=== PATIENT | male | born 2000 | race African-American/Black ===

== ENCOUNTER 2021-12-26 15:12 | Emergency (ER) | payer SELFPAY ==
[2021-12-26 15:23] VITALS: BP 154/91; PULSE 71; RESP 12; TEMP 37; O2SAT 100; BMI 30.4
--- NOTE | 2021-12-26 15:31 | W.ED.UPPEXIN ---
HPI - Extremity Injury (Upper) General: Chief Complaint: Extremity Injury, Upper Stated Complaint: left hand injury Time Seen by Provider: 12/26/21 15:31 Source: patient Mode of arrival: ambulatory Limitations: no limitations History of Present Illness: Patient is a 21-year-old male who presents to ED today for evaluation of a left hand injury that he sustained 2 to 3 days ago while playing basketball. He states he was reaching for the ball when his left hand somehow slammed into the metal pole. complaint: injury to: left and hand Onset (ago): day(s) Other Extremity Injury: Left: hand Other injuries: none Place: outdoors Severity: moderate Relieving factors: immobilization Exacerbating factors: movement of extremity Context: direct blow Associated symptoms: Reports no associated symptoms; Denies weakness in extremities Review of Systems Musc: Reports: extremity pain (L hand); Denies: extremity swelling, joint pain, joint swelling, joint redness, joint warmth or limited range of motion Neuro: Denies: numbness in extremities, weakness in extremities or sensory changes Physical Exam Const: COMMON NORMALS: no acute distress, patient oriented x3, no limitations, alert and well nourished GENERAL APPEARANCE: cooperative Extremity: COMMON NORMALS: full ROM, capillary refill normal, no joint enlargement and no clubbing, cyanosis or edema GENERAL: Yes normal exam except as noted LEFT UPPER EXTREMITY: Yes hand & digits (TTP dorsal 4th metacarpal region; full ROM; no obvious deformity) Left hand and digits: Yes neurovascular exam (normal) Neuro: COMMON NORMALS: patient oriented x3 SENSORIUM/ORIENTATION: Yes alert Course Vital Signs: Vital signs: Vital Signs Temperature 98.6 F 12/26/21 15:23 Pulse Rate 71 12/26/21 15:23 Respiratory Rate 12 12/26/21 15:23 Blood Pressure 154/91 12/26/21 15:23 Pulse Oximetry 100 12/26/21 15:23 MDM - Extremity Injury (Upper) Medical Decision Making XR negative. Recommend conservative treatment at home. Follow-up with PCP in 1 to 2 weeks for continued pain. Discharge Plan Discharge Patient Disposition: Home Clinical Impression: Contusion of left hand Qualifiers: Encounter type: initial encounter Qualified Code(s): S60.222A - Contusion of left hand, initial encounter Condition: Stable Discharge Orders: Discharge ED (Routine); Ordered 12/26/21 Ordered By: Kandi Javed Patient Instructions: Contusion Stand Alone Forms: Work/School Release Coding Level of Care Code ED Cardiovascular Surgeon for Chg Fwd Exam Expanded Problem Focused
--- NOTE | 2021-12-26 15:41 | XRR_ITS ---
PROCEDURE INFORMATION: Exam: XR Left Hand Exam date and time: 12/26/2021 3:54 PM Age: 21 years old Clinical indication: Injury or trauma; Other: Playing basketball; Blunt trauma (contusions or hematomas); Hand; Left; Injury date: Few days ago; Additional info: Trauma/injury TECHNIQUE: Imaging protocol: XR Left hand. Views: 3 or more views. COMPARISON: No relevant prior studies available. FINDINGS: Bones/joints: Normal. Soft tissues: Normal. XR/XR hand LT min 3V* [id number] IMPRESSION: No acute findings.
== END 2021-12-26 16:25 | disposition home or self-care (01) ==
PROVIDERS: Emergency Provider Physician Assistant
DX: S60.222A Contusion of left hand, initial encounter (principal); W22.8XXA Striking against or struck by other objects, initial encounter; Y93.67 Activity, basketball
CPT/HCPCS: 73130; 99282

== ENCOUNTER 2022-01-04 16:56 | Emergency (ER) | payer SELFPAY ==
[2022-01-04 17:06] VITALS: BP 143/64; PULSE 71; RESP 18; TEMP 37.2; O2SAT 99; BMI 33.9
--- NOTE | 2022-01-04 17:55 | ED_ITS ---
HPI - Extremity Problem General: Chief complaint: Extremity Problem,Nontraumatic Stated complaint: Knee an back pain Time Seen by Provider: 01/04/22 17:39 History of Present Illness: Patient presents today with complaints of low back pain and bilateral knee pain. Patient denies any falls or injury. Patient just made some complaints at work today and the nurse recommended that he be evaluated in the ER to rule out injury. Patient appears well. Patient appears in no acute distress. Patient was very active in sports since eighth grade. He did play football in middle school and in high school. Patient recently has started working for the last 2 weeks with [employer]. Patient also plays basketball with his friends daily. Associated symptoms: Deny chest pain Review of Systems General: Reports: 10 or more systems reviewed and unremarkable except in HPI and below Card: Denies: chest pain Resp: Denies: dyspnea Musc: Reports: back pain and extremity pain Neuro: Denies: headache(s) Physical Exam 2 Const: COMMON NORMALS: negative for alert Neck/C-Spine: COMMON NORMALS: full ROM Resp: COMMON NORMALS: normal respiratory effort and clear to auscultation bilaterally AUSCULTATION: clear to auscultation bilaterally Cardio: COMMON NORMALS: regular rate and regular rhythm RATE: regular rate RHYTHM: regular rhythm Back/Pelvis: COMMON NORMALS: thoracic and lumbar spine normal to inspection Extremity: RIGHT LOWER EXTREMITY: Yes knee joint Right knee: Yes inspection, Yes palpation and Yes ROM LEFT LOWER EXTREMITY: Yes knee joint Left knee: Yes inspection, Yes palpation and Yes ROM Neuro: SENSORIUM/ORIENTATION: No alert Course Vital Signs: Vital signs: Vital Signs Temperature 99 F 01/04/22 17:06 Pulse Rate 71 01/04/22 17:59 Respiratory Rate 18 01/04/22 17:59 Blood Pressure 143/64 01/04/22 17:59 Pulse Oximetry 99 01/04/22 17:59 MDM - Extremity (Nontraumatic) Medical Decision Making Patient came in today for complaints of bilateral knee pain and low back pain. Patient has had improvement of pain since taking ibuprofen at home. Patient had to miss work today due to the discomfort. On exam patient has no palpable tenderness in the back or knees. Patient had played sports in high school football. No obvious swelling or injury is noted on exam. Differential diagnosis includes arthritis, muscle strain, worried well. X-rays of the knees and low back indicated no significant abnormality. Recommended patient continue healthy diet and activity and maintain a good healthy weight. Recommended acetaminophen and ibuprofen for pain. Patient reported understanding agreed to plan. Discharge Plan Discharge Patient Disposition: Home Clinical Impression: Arthralgia Qualifiers: Joint pain location: unspecified Qualified Code(s): M25.50 - Pain in unspecified joint Condition: Stable Discharge Orders: Discharge ED (Routine); Ordered 01/04/22 Ordered By: Waqas Love Discharge Diet: Usual diet Discharge Activity: Increase activity as tolerated Patient Instructions: Musculoskeletal Pain (ED) Activity Restrictions/Additional Instructions: Activity as tolerated. Use acetaminophen or ibuprofen to help with musculoskeletal pain. Drink plenty of water with medications. Maintain a healthy weight. Try to stay physically active. Follow-up with primary care for further evaluation and treatment. Return to ER for new concerns. Stand Alone Forms: Work/School Release Coding Level of Care Code ED Bow Machine Operator for Mitzi Knapp
[2022-01-04 17:59] VITALS: BP 143/64; PULSE 71; RESP 18; O2SAT 99
--- NOTE | 2022-01-04 18:00 | XRR_ITS ---
PROCEDURE INFORMATION: Exam: XR Right Knee Exam date and time: 01/04/2022 6:19 PM Age: 21 years old Clinical indication: Pain; Knee; Right; Additional info: Knee pain TECHNIQUE: Imaging protocol: XR Right knee. Views: 3 views. COMPARISON: No relevant prior studies available. FINDINGS: Bones/joints: Normal. Soft tissues: Normal. XR/XR knee RT 3V* [id number] IMPRESSION: No acute findings.
--- NOTE | 2022-01-04 18:00 | XRR_ITS ---
PROCEDURE INFORMATION: Exam: XR Left Knee Exam date and time: 01/04/2022 6:22 PM Age: 21 years old Clinical indication: Pain; Knee; Left; Additional info: Knee pain TECHNIQUE: Imaging protocol: XR Left knee. Views: 3 views. COMPARISON: No relevant prior studies available. FINDINGS: Bones/joints: Normal. Soft tissues: Normal. XR/XR knee LT 3V* [id number] IMPRESSION: No acute findings.
--- NOTE | 2022-01-04 18:00 | XRR_ITS ---
PROCEDURE INFORMATION: Exam: XR Lumbosacral Spine Exam date and time: 01/04/2022 6:16 PM Age: 21 years old Clinical indication: Low back pain TECHNIQUE: Imaging protocol: XR of the lumbosacral spine. Views: 2 or 3 views. COMPARISON: No relevant prior studies available. FINDINGS: Bones/joints: Normal. No acute fracture. Normal alignment. Soft tissues: Unremarkable. XR/XR lumbar spine 2-3V* [id number] IMPRESSION: No acute findings.
== END 2022-01-04 18:38 | disposition home or self-care (01) ==
PROVIDERS: Emergency Provider Nurse Practitioner Family
DX: M54.50 Low back pain, unspecified (principal); M25.562 Pain in left knee; M25.561 Pain in right knee
CPT/HCPCS: 72100; 73562; 99282